=== PATIENT | female | born 1965 | race Two or more races ===

== ENCOUNTER → 2017-02-11 | Outpatient (CLI) | payer MEDICARE, OTHER ==
[~2017-02-11] MED LIST: IBUP800T23 PO; LISI-515 PO; MEDR4PAK PO; VITA10003 PO
[2017-02-11 10:26] LABS: AUTOMATED NEUTROPHIL # 3.1 TH/MM3 (1.8-7.7); BASOPHIL % 0.3 % (0.0-2.0); EOSINOPHIL # 0.1 TH/MM3 (0-0.4); EOSINOPHIL % 1.9 % (0.0-4.0); HEMATOCRIT 37.7 % (35.0-46.0); HEMO FLAGS DIFF FINAL; LYMPH % 28.4 % (9.0-44.0); LYMPHOCYTE # 1.4 TH/MM3 (1.0-4.8); MEAN CELL VOLUME 88.2 FL (80.0-100.0); MEAN CORPUSCULAR HEMOGLOBIN 30.3 PG (27.0-34.0); MEAN CORPUSCULAR HGB CONC 34.4 % (32.0-36.0); MONO % 6.5 % (0.0-8.0); NEUT % 62.9 % (16.0-70.0); PLATELET COUNT 202 TH/MM3 (150-450); RED BLOOD COUNT 4.27 MIL/MM3 (4.00-5.30); RED CELL DISTRIBUTION WIDTH 13.7 % (11.6-17.2)
[2017-02-11 10:52] LABS: ALKALINE PHOSPHATASE 46 U/L (45-117); ALT (GPT) 24 U/L (10-53); ANION GAP 7 MEQ/L (5-15); AST (GOT) 12 U/L (15-37); BICARBONATE 25.6 MEQ/L (21.0-32.0); BLOOD UREA NITROGEN 13 MG/DL (7-18); CHLORIDE 109 MEQ/L (98-107); GLOMERULAR FILTRATION RATE 104 ML/MIN (>89); GLUCOSE,FASTING 93 MG/DL (74-99); HDL CHOLESTEROL 43.8 MG/DL (40.0-60.0); LDL CHOLESTEROL 93 MG/DL (0-99); POTASSIUM 3.7 MEQ/L (3.5-5.1); SODIUM (NA) 142 MEQ/L (136-145); TOTAL BILIRUBIN ADULT 0.3 MG/DL (0.2-1.0)
== END ==
LOC: CLAB 09:46
PROVIDERS: ATTEND Hospitalist
DX: I10 Essential (primary) hypertension (principal)
CPT/HCPCS: 36415; 80053; 80061; 85025; 86803

== ENCOUNTER 2017-09-22 14:44 | Emergency (ER) | payer MEDICARE, OTHER ==
[~2017-09-22 14:44] MED LIST changes: +IBUP1TAB7 PO; -IBUP800T23 PO; -MEDR4PAK PO
[2017-09-22] MEDS ORDERED: IOHEXOL 350 MG/ML 10 ML VIAL (for RAD DIAG) IVCONTRAST ONE (14:45)
[2017-09-22 14:46] VITALS: BP 175/93; PULSE 90; RESP 14; TEMP 98.5; O2SAT 98
[2017-09-22 16:45] LABS: BLOOD, URINE TRACE (NEG); GLUCOSE,URINE NEG (NEG); KETONE, URINE NEG (NEG); MUCUS URINE FEW /lpf (OCC); NITRITE,URINE NEG (NEG); PH, URINE 6.5 (5.0-8.5); SQUAMOUS EPITHELIAL CELL URINE 1 /hpf (0-5); URINE COLOR LIGHT-YELLOW (YELLW/STRAW)
--- NOTE | 2017-09-22 16:45 | PD ---
HPI . Abdominal pain Chief Complaint: Abdominal Pain Time Seen by Provider: 16:04 Travel History International Travel<30 days: No Contact w/Intl Traveler<30days: No Traveled to known affect area: No History of Present Illness HPI Patient presents with the chief complaint of abdominal pain. Onset was a couple days ago. It's worse in the left lower quadrant. The quality of the pain is "soreness." Pain is rated 8/10. She states that it feels like her abdomen is swollen. Pain is exacerbated by movement and by sitting up straight. She does not have any associated symptoms such as GI symptoms or symptoms. She has not been running a fever. PFSH Past Medical History Cancer: No Cardiovascular Problems: No High Cholesterol: No Diabetes: No Diminished Hearing: No Endocrine: No Genitourinary: No Hepatitis: No Hiatal Hernia: No Hypertension: Yes Immune Disorder: No Musculoskeletal: Yes (HIP PROBLEMS -CONGENITAL , CHRONIC BACK PAIN ) Neurologic: No Psychiatric: No Reproductive: Yes Respiratory: No Immunizations Current: Yes Thyroid Disease: No ?: Unknown : 3 Para: 3 Miscarriage: 0 : 0 Tubal Ligation: Yes Past Surgical History AICD: No Gynecologic Surgery: Yes (TUBAL LIGATION ) Hysterectomy: Yes Joint Replacement: No Pacemaker: No Other Surgery: Yes Social History Alcohol Use: No Tobacco Use: No Substance Use: No Allergies-Medications (Allergen,Severity, Reaction): Coded Allergies: No Known Allergies (Verified , 07/31/17) Reported Meds & Prescriptions Reported Meds & Active Scripts Active No Active Prescriptions or Reported Medications Review of Systems Except as stated in HPI: all other systems reviewed are Neg General / Constitutional: No: Fever, Chills Gastrointestinal: Positive: Abdominal Pain, No: Nausea, Vomiting, Diarrhea, Constipation, Loss of Appetite Genitourinary: No: Urgency, Frequency, Dysuria Physical Exam Narrative GENERAL: Patient is awake and alert and does not appear to be in any distress. SKIN: warm/dry. Good color and turgor. HEAD: Normocephalic. Atraumatic. EYES: Pupils equal and round. No scleral icterus. No injection or drainage. ENT: No nasal bleeding or discharge. Mucous membranes pink and moist. NECK: Trachea midline. Full range of motion without pain.. CARDIOVASCULAR: Regular rate and rhythm. RESPIRATORY: No accessory muscle use. Clear to auscultation. Breath sounds equal bilaterally. GASTROINTESTINAL: Abdomen soft. Diffuse mild tenderness with no guarding or rebound. Bowel sounds present. Nondistended. MUSCULOSKELETAL: No obvious deformities. NEUROLOGICAL: Awake and alert. No obvious cranial nerve deficits. Motor grossly within normal limits. Normal speech. PSYCHIATRIC: Appropriate mood and affect; insight and judgment normal. Data Data Last Documented VS Vital Signs Date Time Temp Pulse Resp B/P (MAP) Pulse Ox O2 Delivery O2 Flow Rate FiO2 09/22/17 14:46 98.5 90 14 175/93 (120) 98 Orders Orders Complete Blood Count With Diff (09/22/17 14:50) Comprehensive Metabolic Panel (09/22/17 14:50) Lipase (09/22/17 14:50) Prothrombin Time / Inr (Pt) (09/22/17 14:50) Act Partial Throm Time (Ptt) (09/22/17 14:50) Urinalysis - C+S If Indicated (09/22/17 14:50) Ct Abd/Pel W Iv Contrast(Rout) (09/22/17 16:04) Labs Laboratory Tests Test 09/22/17 16:05 White Blood Count 8.1 TH/MM3 Red Blood Count 4.53 MIL/MM3 Hemoglobin 13.8 GM/DL Hematocrit 40.7 % Mean Corpuscular Volume 89.9 FL Mean Corpuscular Hemoglobin 30.5 PG Mean Corpuscular Hemoglobin Concent 33.9 % Red Cell Distribution Width 13.5 % Platelet Count 235 TH/MM3 Mean Platelet Volume 8.1 FL Neutrophils (%) (Auto) 66.4 % Lymphocytes (%) (Auto) 25.2 % Monocytes (%) (Auto) 7.0 % Eosinophils (%) (Auto) 1.1 % Basophils (%) (Auto) 0.3 % Neutrophils # (Auto) 5.4 TH/MM3 Lymphocytes # (Auto) 2.0 TH/MM3 Monocytes # (Auto) 0.6 TH/MM3 Eosinophils # (Auto) 0.1 TH/MM3 Basophils # (Auto) 0.0 TH/MM3 CBC Comment DIFF FINAL Differential Comment Prothrombin Time 10.5 SEC Prothromb Time International Ratio 1.0 RATIO Activated Partial Thromboplast Time 25.3 SEC Urine Color LIGHT-YELLOW Urine Turbidity CLEAR Urine pH 6.5 Urine Specific [place] 1.020 Urine Protein NEG mg/dL Urine Glucose (UA) NEG mg/dL Urine Ketones NEG mg/dL Urine Occult Blood TRACE Urine Nitrite NEG Urine Bilirubin NEG Urine Urobilinogen LESS THAN 2.0 MG/DL Urine Leukocyte Esterase NEG Urine RBC 2 /hpf Urine WBC 1 /hpf Urine Squamous Epithelial Cells 1 /hpf Urine Mucus FEW /lpf Microscopic Urinalysis Comment CULT NOT INDICATED MDM Medical Decision Making Medical Screen Exam Complete: Yes Emergency Medical Condition: Yes Differential Diagnosis Differential diagnosis of abdominal pain includes but is not limited to gastritis, pancreatitis, hepatitis, gastroenteritis, gallbladder disease, constipation, urinary retention, UTI, peptic ulcer disease, diverticulitis or appendicitis Narrative Course This patient presents complaining with abdominal pain and bloating. She has a benign exam. Her care is being turned over to the oncoming provider pending her workup. Diagnosis Primary Impression: Abdominal pain Qualified Codes: R10.32 - Left lower quadrant pain Scripts No Active Prescriptions or Reported Meds Selam Ramirez MD Sep 22, 2017 16:45
[2017-09-22 16:48] LABS: COMMENT (UR) CULT NOT INDICATED; CULTURE IF INDICATED CULT NOT INDICATED
[2017-09-22 16:49] LABS: AUTOMATED NEUTROPHIL # 5.4 TH/MM3 (1.8-7.7); BASOPHIL % 0.3 % (0.0-2.0); EOSINOPHIL # 0.1 TH/MM3 (0-0.4); EOSINOPHIL % 1.1 % (0.0-4.0); HEMATOCRIT 40.7 % (35.0-46.0); HEMO FLAGS DIFF FINAL; LYMPH % 25.2 % (9.0-44.0); MEAN CELL VOLUME 89.9 FL (80.0-100.0); MEAN CORPUSCULAR HEMOGLOBIN 30.5 PG (27.0-34.0); MEAN CORPUSCULAR HGB CONC 33.9 % (32.0-36.0); NEUT % 66.4 % (16.0-70.0); PLATELET COUNT 235 TH/MM3 (150-450); RED BLOOD COUNT 4.53 MIL/MM3 (4.00-5.30); RED CELL DISTRIBUTION WIDTH 13.5 % (11.6-17.2); WHITE BLOOD COUNT 8.1 TH/MM3 (4.0-11.0)
[2017-09-22 16:58] LABS: APTT (PATIENT) 25.3 SEC (24.3-30.1); PROTHROMBIN TIME - PATIENT 10.5 SEC (9.8-11.6)
[2017-09-22 17:07] LABS: ANION GAP 7 MEQ/L (5-15); AST (GOT) 27 U/L (15-37); BICARBONATE 27.7 MEQ/L (21.0-32.0); BLOOD UREA NITROGEN 17 MG/DL (7-18); CHLORIDE 102 MEQ/L (98-107); GLOMERULAR FILTRATION RATE 107 ML/MIN (>89); POTASSIUM 3.7 MEQ/L (3.5-5.1); SODIUM (NA) 137 MEQ/L (136-145)
[2017-09-22 17:11] LABS: ALKALINE PHOSPHATASE 57 U/L (45-117); ALT (GPT) 50 U/L (10-53); TOTAL BILIRUBIN ADULT 0.2 MG/DL (0.2-1.0)
--- NOTE | 2017-09-22 18:29 | RADRPT ---
EXAM DATE/TIME: 09/22/2017 17:57 [facility] COMPARISON: CT ABDOMEN & PELVIS W CONTRAST, September 07, 2016, 0:27. INDICATIONS : Generalized abdomen pain for two days. IV CONTRAST: 81 cc Omnipaque 350 (iohexol) IV ORAL CONTRAST: No oral contrast ingested. RADIATION DOSE: 6.73 CTDIvol (mGy) MEDICAL HISTORY : Hypertension. SURGICAL HISTORY : Tubal ligation. Hysterectomy. ENCOUNTER: Initial ACUITY: 2 days PAIN SCALE: 8/10 LOCATION: Abdomen TECHNIQUE: Volumetric scanning of the abdomen and pelvis was performed. Using automated exposure control and ad justment of the mA and/or kV according to patient size, radiation dose was kept as low as reasonably achievable to obtain optimal diagnostic quality images. DICOM format image data is available electro nically for review and comparison. FINDINGS: LOWER LUNGS: The visualized lower lungs are clear. LIVER: Mild diffuse low density without lesion. There is no dilation of the biliary tree. No calcified gal lstones. SPLEEN: Normal size without lesion. PANCREAS: Within normal limits. KIDNEYS: Normal in size and shape. There is no mass, stone or hydronephrosis. ADRENAL GLANDS: Within normal limits. VASCULAR: There is no aortic aneurysm. There is mild atherosclerotic disease. BOWEL/MESENTERY: The stomach, small bowel, and colon demonstrate no acute abnormality. There is no free intraperitone al air or fluid. Appendix is normal. ABDOMINAL WALL: Within normal limits. RETROPERITONEUM: There is no lymphadenopathy. BLADDER: No wall thickening or mass. REPRODUCTIVE: No acute abnormality. INGUINAL: There is no lymphadenopathy or hernia. 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 CONCLUSION: 1. No abnormality is identified to explain the clinical symptoms. Overall, no acute finding is seen. 2. 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 Dajuan Aguilera MD on September 22, 2017 at 18:24 Board Certified Radiologist. This report was verified electronically.
--- NOTE | 2017-09-22 18:40 | PD ---
Data Data Last Documented VS Vital Signs Date Time Temp Pulse Resp B/P (MAP) Pulse Ox O2 Delivery O2 Flow Rate FiO2 09/22/17 14:46 98.5 90 14 175/93 (120) 98 Orders Orders Complete Blood Count With Diff (09/22/17 14:50) Comprehensive Metabolic Panel (09/22/17 14:50) Lipase (09/22/17 14:50) Prothrombin Time / Inr (Pt) (09/22/17 14:50) Act Partial Throm Time (Ptt) (09/22/17 14:50) Urinalysis - C+S If Indicated (09/22/17 14:50) Ct Abd/Pel W Iv Contrast(Rout) (09/22/17 16:04) Iohexol 350 Inj (Omnipaque 350 Inj) (09/22/17 14:45) Ketorolac Inj (Toradol Inj) (09/22/17 18:45) Labs Laboratory Tests Test 09/22/17 16:05 White Blood Count 8.1 TH/MM3 Red Blood Count 4.53 MIL/MM3 Hemoglobin 13.8 GM/DL Hematocrit 40.7 % Mean Corpuscular Volume 89.9 FL Mean Corpuscular Hemoglobin 30.5 PG Mean Corpuscular Hemoglobin Concent 33.9 % Red Cell Distribution Width 13.5 % Platelet Count 235 TH/MM3 Mean Platelet Volume 8.1 FL Neutrophils (%) (Auto) 66.4 % Lymphocytes (%) (Auto) 25.2 % Monocytes (%) (Auto) 7.0 % Eosinophils (%) (Auto) 1.1 % Basophils (%) (Auto) 0.3 % Neutrophils # (Auto) 5.4 TH/MM3 Lymphocytes # (Auto) 2.0 TH/MM3 Monocytes # (Auto) 0.6 TH/MM3 Eosinophils # (Auto) 0.1 TH/MM3 Basophils # (Auto) 0.0 TH/MM3 CBC Comment DIFF FINAL Differential Comment Prothrombin Time 10.5 SEC Prothromb Time International Ratio 1.0 RATIO Activated Partial Thromboplast Time 25.3 SEC Urine Color LIGHT-YELLOW Urine Turbidity CLEAR Urine pH 6.5 Urine Specific [place] 1.020 Urine Protein NEG mg/dL Urine Glucose (UA) NEG mg/dL Urine Ketones NEG mg/dL Urine Occult Blood TRACE Urine Nitrite NEG Urine Bilirubin NEG Urine Urobilinogen LESS THAN 2.0 MG/DL Urine Leukocyte Esterase NEG Urine RBC 2 /hpf Urine WBC 1 /hpf Urine Squamous Epithelial Cells 1 /hpf Urine Mucus FEW /lpf Microscopic Urinalysis Comment CULT NOT INDICATED Blood Urea Nitrogen 17 MG/DL Creatinine 0.59 MG/DL Random Glucose 83 MG/DL Total Protein 8.2 GM/DL Albumin 4.0 GM/DL Calcium Level 9.5 MG/DL Alkaline Phosphatase 57 U/L Aspartate Amino Transf (AST/SGOT) 27 U/L Alanine Aminotransferase (ALT/SGPT) 50 U/L Total Bilirubin 0.2 MG/DL Sodium Level 137 MEQ/L Potassium Level 3.7 MEQ/L Chloride Level 102 MEQ/L Carbon Dioxide Level 27.7 MEQ/L Anion Gap 7 MEQ/L Estimat Glomerular Filtration Rate 107 ML/MIN Lipase 121 U/L [facility] Supervised Visit with VERONICA: No Narrative Course The patient was initially evaluated by the previous provider and sent out to me at the beginning of my shift pending labs, CT abdomen pelvis, and disposition. See her note for further details. Briefly this is a 52-year-old female who is here for evaluation of left lower quadrant abdominal pain. Symptoms started couple of days ago. Pain described as a soreness and is 8 out of 10. She feels some abdominal bloating. On my exam the patient is resting comfortably. There is mild left lower quadrant tenderness without peritoneal signs. Vital signs show heart rate 90, blood pressure 175/93, pulse ox 90% on room air, oral temp of 98.5F. CBC is unremarkable. CMP is unremarkable. Lipase is 121. UA shows trace occult blood , few mucus, not suggestive of UTI. CT abdomen pelvis: CONCLUSION: 1. No abnormality is identified to explain the clinical symptoms. Overall, no acute finding is seen. 2. 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 Patient was made aware of all findings. Again she is resting comfortably. There are no peritoneal signs on exam. There is mild left lower quadrant tenderness. At this point she is stable for discharge home with outpatient follow-up with her primary care physician this week. She states she has a colonoscopy scheduled for October. I also advised that she follow-up regarding her microscopic hematuria to make sure that it resolves, and if it doesn't he needs to be further evaluated. She was informed on when to return to the emergency department. She verbalizes understanding and agreement with plan. Diagnosis Primary Impression: Abdominal pain Qualified Codes: R10.32 - Left lower quadrant pain Additional Impression: Microscopic hematuria Referrals: Primary Care Physician 3 days Additional Instruction: Follow-up with your primary care physician this week. Return to the emergency department for worsening symptoms or any other concerns. Scripts No Active Prescriptions or Reported Meds Disposition: 01 DISCHARGE HOME Condition: Stable Deny Caraballo MD Sep 22, 2017 18:40
[2017-09-22] MEDS ORDERED: KETOROLAC TROMETHAMINE 30 MG/ML (IVP) VIAL IV PUSH ONE (18:45)
[2017-09-29] MEDS ORDERED: FLU60SYR19 IM (09:45)
== END 2017-09-22 19:06 | disposition home or self-care (01) ==
LOC: NEPD 14:44
DX: R10.32 Left lower quadrant pain (principal); R31.29 Other microscopic hematuria
CPT/HCPCS: 74177; 80053; 81001; 83690; 85025; 85610; 85730; 96374; 99285; J1885; Q9967

== ENCOUNTER 2018-08-15 09:11 | Inpatient (IN) ==
[2018-08-15] MEDS ORDERED: Gadobutrol PF 7.5 MMOL/7.5 ML Vial (for RAD) IV.SIG ONE (09:12)
--- NOTE | 2018-08-15 09:41 | ED ---
HPI General Chief Complaint: Neuro Symptoms/Deficit Stated Complaint: Numbness facial Time Seen by Provider: 08/15/18 09:26 Source: patient Mode of arrival: ambulatory Limitations: no limitations History of Present Illness HPI Narrative: Patient comes in complaining of waking up with right facial droop , right upper extremity clumsiness right lower extremity weakness however still strong enough to ambulate on her own. Patient stated that she started having tingling and numbness to those same areas last night at 8 PM, she went ahead and just ate her dinner and went took a shower and went to sleep hoping it would feel better. Patient denies having any chest pain any shortness of breath previously Related Data Previous Rx's Medication Instructions Recorded ibuprofen 800 mg PO Q8H PRN #14 tab 08/05/18 methocarbamol [Robaxin] 500 mg PO Q8H #14 tab 08/05/18 Allergies Allergy/AdvReac Type Severity Reaction Status Date / Time No Known Allergies Allergy Verified 08/15/18 09:19 [facility] Social History Social History Substance History: No History of Abuse Second Hand Smoke Exposure: No Smoking Status: Never smoker Tobacco Type: Cigarettes How Often Do You Have a Drink Containing Alcohol: Never Recent Travel in [facility] within the Last 8 Weeks: No Recent Out of Country Travel within the Last 8 Weeks: No Immunization History Tetanus Immunization: Unsure Hx Influenza Vaccine This Season: No Course Initial Documented Vital Signs Temperature 98.3 F 08/15/18 09:13 Pulse Rate 90 08/15/18 09:13 Respiratory Rate 18 08/15/18 09:13 Blood Pressure 174/91 H 08/15/18 09:13 Last Documented Vital Signs Temperature 98.3 F 08/15/18 09:13 Pulse Rate 73 08/15/18 11:24 Respiratory Rate 18 08/15/18 11:24 Blood Pressure 163/84 H 08/15/18 11:24 Pulse Oximetry 99 08/15/18 11:24 Critical Care Time Critical Care Time: Yes Total Critical Care Time: 30 Attestation: Aggregate critical care time was 30 minutes. Time to perform other separately billable procedures was not included in the critical care time. My time did not include minutes spent treating any other patients simultaneously or on activities that did not directly contribute to the patient's treatment. The services I provided to this patient were to treat and/or prevent clinically significant deterioration. I provided critical care services requiring my management, as noted below: Chart data review, documentation time, medication orders and management, vital sign assessments/reviewing monitor data, ordering and reviewing lab tests, ordering and interpreting/reviewing x-rays and diagnostic studies, care of the patient and discussion of the patient with the admitting physicians. NIH Stroke Scale NIHSS Time Completed NIHSS Time Completed: 09:40 NIH Stroke Scale Level of Consciousness: 0-Alert Orientation Questions: 0-Answers both correct Responds to Commands: 0-Both tasks correct Gaze Eye Movement: 0-Horizontal movement WNL Facial Movement: 3-Complete unilateral palsy Motor Functions Arm LEFT: 0-No drift Motor Functions Arm RIGHT: 1-Drift before 10 seconds Motor Functions Leg LEFT: 0-No drift Motor Functions Leg RIGHT: 1-Drift before 5 seconds Limb Ataxia: 0-No ataxia Sensory Loss: 0-No sensory loss Best Language: 1-Mild aphasia Articulation: 1-Mild dysarthia Extinction or Inattention Sensory: 0-Absent Total: 7 Medical Decision Making MDM Narrative Medical decision making narrative: patient was taken care of and had dr saenz neurologist at bedside providing care. please see his note for interventions. call to [facility] for admission nearly 2 hrs ago, still no call back. Medical Screen Exam Complete: Yes Emergency Medical Condition: Yes Medical Records Medical records reviewed: Yes I reviewed the patient's medical records. Lab Data Result diagrams: 08/15/18 09:38 08/15/18 09:38 Lab Results 08/15/18 08/15/1818 Range/Units 09:38 09:38 09:38 WBC 5.9 (4.0-11.0) th/mm3 RBC 4.44 (4.00-5.30) mil/mm3 Hgb 13.8 (11.6-15.3) gm/dL POC Hgb (Calc) 13.6 (11.6-15.3) g/dL Hct 40.1 (35.0-46.0) % POC Hct 40.0 (35-46.0) % MCV 90.4 (80.0-100.0) fL MCH 31.1 (27.0-34.0) pg MCHC 34.4 (32.0-36.0) % RDW 13.3 (11.6-17.2) % Plt Count 226 (150-450) th/mm3 MPV 8.2 (7.0-11.0) fL Neut % (Auto) 58.2 (16.0-70.0) % Lymph % (Auto) 31.8 (9.0-44.0) % [place] % (Auto) 6.9 (0.0-8.0) % Eos % (Auto) 2.6 (0.0-4.0) % Baso % (Auto) 0.5 (0.0-2.0) % Neut # (Auto) 3.4 (1.8-7.7) th/mm3 Lymph # (Auto) 1.9 (1.0-4.8) th/mm3 [place] # (Auto) 0.4 (0.0-0.9) th/mm3 Eos # (Auto) 0.2 (0.0-0.4) th/mm3 Baso # (Auto) 0.0 (0.0-0.2) th/mm3 WBC Differential . Differential Comment Auto diff final ESR (0-30) mm/hr PT 10.0 (9.8-11.6) sec INR 1.0 Ratio APTT 25.3 (24.3-30.1) sec POC Sodium 139 (137-144) mmol/L Sodium 141 (136-145) meq/L POC Potassium 3.9 (3.6-5.0) mmol/L Potassium 3.9 (3.5-5.1) meq/L POC Chloride 104 (102-111) mmol/L Chloride 108 H (98-107) meq/L Carbon Dioxide 24.6 (21.0-32.0) meq/L Anion Gap 8 (5-15) meq/L POC BUN 14 (5-21) mg/dL BUN 15 (7-18) mg/dL Creatinine 0.58 (0.50-1.00) mg/dL POC Creatinine 0.5 L (0.6-1.3) mg/dL Estimated GFR Greater than 89 (>89) mL/min POC Glucose 97 (68-110) mg/dL Random Glucose 94 (74-106) mg/dL Calcium 8.5 (8.5-10.1) mg/dL Total Bilirubin 0.3 (0.2-1.0) mg/dL AST 24 (15-37) U/L ALT 44 (10-53) U/L Alkaline Phosphatase 50 (45-117) U/L Total Creatine Kinase 116 (26-192) U/L CK-MB (CK-2) Less than 1.0 (0.5-3.6) ng/mL Troponin I Less than 0.02 L (0.02-0.05) ng/mL Total Protein 7.7 (6.4-8.2) g/dL Albumin 3.7 (3.4-5.0) g/dL Urine Color (Yellw/Straw) Urine Clarity (Clear) Urine pH (5.0-8.5) Ur Specific [place] (1.002-1.035) Urine Protein (Neg-Trace) mg/dL Urine Glucose (UA) (Negative) mg/dL Urine Ketones (Negative) mg/dL Urine Occult Blood (Negative) Urine Nitrate (Negative) Urine Bilirubin (Negative) Urine Urobilinogen (Less than 2) mg/dL Ur Leukocyte Esterase (Negative) Urine RBC (0-3) /hpf Urine WBC (0-5) /hpf Ur Squamous Epith Cells (0-5) /hpf Micro UA Comment Ur Microscopic Review Urine Culture Comments Urine Opiates Screen (Neg) Ur Barbiturates Screen (Neg) Ur Amphetamines Screen (Neg) U Benzodiazepines Scrn (Neg) Urine Cocaine Screen (Neg) U Cannabinoids Screen (Neg) 08/15/18 08/15/18 08/15/18 Range/Units 09:38 10:35 10:35 WBC (4.0-11.0) th/mm3 RBC (4.00-5.30) mil/mm3 Hgb (11.6-15.3) gm/dL POC Hgb (Calc) (11.6-15.3) g/dL Hct (35.0-46.0) % POC Hct (35-46.0) % MCV (80.0-100.0) fL MCH (27.0-34.0) pg MCHC (32.0-36.0) % RDW (11.6-17.2) % Plt Count (150-450) th/mm3 MPV (7.0-11.0) fL Neut % (Auto) (16.0-70.0) % Lymph % (Auto) (9.0-44.0) % [place] % (Auto) (0.0-8.0) % Eos % (Auto) (0.0-4.0) % Baso % (Auto) (0.0-2.0) % Neut # (Auto) (1.8-7.7) th/mm3 Lymph # (Auto) (1.0-4.8) th/mm3 [place] # (Auto) (0.0-0.9) th/mm3 Eos # (Auto) (0.0-0.4) th/mm3 Baso # (Auto) (0.0-0.2) th/mm3 WBC Differential Differential Comment ESR 17 (0-30) mm/hr PT (9.8-11.6) sec INR Ratio APTT (24.3-30.1) sec POC Sodium (137-144) mmol/L Sodium (136-145) meq/L POC Potassium (3.6-5.0) mmol/L Potassium (3.5-5.1) meq/L POC Chloride (102-111) mmol/L Chloride (98-107) meq/L Carbon Dioxide (21.0-32.0) meq/L Anion Gap (5-15) meq/L POC BUN (5-21) mg/dL BUN (7-18) mg/dL Creatinine (0.50-1.00) mg/dL POC Creatinine (0.6-1.3) mg/dL Estimated GFR (>89) mL/min POC Glucose (68-110) mg/dL Random Glucose (74-106) mg/dL Calcium (8.5-10.1) mg/dL Total Bilirubin (0.2-1.0) mg/dL AST (15-37) U/L ALT (10-53) U/L Alkaline Phosphatase (45-117) U/L Total Creatine Kinase (26-192) U/L CK-MB (CK-2) (0.5-3.6) ng/mL Troponin I (0.02-0.05) ng/mL Total Protein (6.4-8.2) g/dL Albumin (3.4-5.0) g/dL Urine Color Straw (Yellw/Straw) Urine Clarity Clear (Clear) Urine pH 7.0 (5.0-8.5) Ur Specific [place] 1.031 (1.002-1.035) Urine Protein Negative (Neg-Trace) mg/dL Urine Glucose (UA) Negative (Negative) mg/dL Urine Ketones Negative (Negative) mg/dL Urine Occult Blood Negative (Negative) Urine Nitrate Negative (Negative) Urine Bilirubin Negative (Negative) Urine Urobilinogen Less than 2 (Less than 2) mg/dL Ur Leukocyte Esterase Negative (Negative) Urine RBC Less than 1 (0-3) /hpf Urine WBC 2 (0-5) /hpf Ur Squamous Epith Cells 3 (0-5) /hpf Micro UA Comment Culture not ind Ur Microscopic Review Not Reportable Urine Culture Comments Culture not ind Urine Opiates Screen Neg (Neg) Ur Barbiturates Screen Neg (Neg) Ur Amphetamines Screen Neg (Neg) U Benzodiazepines Scrn Neg (Neg) Urine Cocaine Screen Neg (Neg) U Cannabinoids Screen Neg (Neg) Imaging Data Radiologist's impression: Chest X-Ray 08/15/18 09:34 CONCLUSION: No acute cardiopulmonary abnormality is identified. Head CT 08/15/18 09:34 CONCLUSION: Negative noncontrast head CT. No acute intracranial abnormality is identified. Report was telephoned to Dr. Morocho on 08/15/2018 at 9:57 AM. Head CTA 08/15/18 09:34 CONCLUSION: No acute intracranial arterial vascular abnormality is identified. These findings were telephoned to Dr. Morocho on 08/15/2018 at 10:42 AM. Neck CTA 08/15/18 09:34 CONCLUSION: No acute abnormality is identified within the neck arterial vasculature. These findings were telephoned to Dr. Morocho on 08/15/2018 at 10:42 AM. Head MRI 08/15/18 10:09 CONCLUSION: Negative brain MRI with and without intravenous contrast. There are no findings to indicate recent ischemia. ECG Data EKG Prior to Arrival: No Attestation: I personally reviewed and interpreted this ECG as follows: Prior ECG tracings: not available for review Discharge Plan Discharge Disposition Patient Disposition: 30 Still Patient Discharge Condition Condition: Stable Discharge Details Diagnosis: CVA (cerebral vascular accident) Physicians Team ED Provider: Armando Quijano Primary Care Provider: UNKNOWN, Rxs /Orders / Referrals /Forms Prescriptions: No Action methocarbamol [Robaxin] 500 mg tablet 500 mg PO Q8H Qty: 14 RF: 0 ibuprofen 800 mg tablet 800 mg PO Q8H PRN (Reason: pain) Qty: 14 RF: 0 Status ED Status: With Doctor
[2018-08-15] MEDS ORDERED: Sod Chloride 0.9% Inj 1,000 ML IV.CONT SCH (09:45)
[2018-08-15 09:59] LABS: Baso % (Auto) 0.5 % (0.0-2.0); Eos # (Auto) 0.2 th/mm3 (0.0-0.4); Eos % (Auto) 2.6 % (0.0-4.0); Hematocrit 40.1 % (35.0-46.0); Hemoglobin 13.8 gm/dL (11.6-15.3); Lymph # (Auto) 1.9 th/mm3 (1.0-4.8); Lymph % (Auto) 31.8 % (9.0-44.0); Mean Corpuscular HGB Conc 34.4 % (32.0-36.0); Mean Corpuscular Hemoglobin 31.1 pg (27.0-34.0); Mean Corpuscular Volume 90.4 fL (80.0-100.0); Mean Platelet Volume 8.2 fL (7.0-11.0); Mono # (Auto) 0.4 th/mm3 (0.0-0.9); Mono % (Auto) 6.9 % (0.0-8.0); Neut # (Auto) 3.4 th/mm3 (1.8-7.7); Neut % (Auto) 58.2 % (16.0-70.0); Platelet Count 226 th/mm3 (150-450); Red Blood Count 4.44 mil/mm3 (4.00-5.30); Red Cell Distribution Width 13.3 % (11.6-17.2); White Blood Count 5.9 th/mm3 (4.0-11.0)
--- NOTE | 2018-08-15 09:59 | CT ---
EXAM DATE: 08/15/2018 9:38 AM EDT AGE/SEX: 52 years / Female INDICATIONS: Stroke alert, right sided facial droop and dysphasia. CLINICAL DATA: This is the patient's initial encounter. Patient reports that signs and symptoms have been present for 1 day and indicates a pain score of Nonresponsive. MEDICAL/SURGICAL HISTORY: Non-responsive. Non-responsive. RADIATION DOSE: 56.35 CTDI (mGy) COMPARISON: No prior exams available for comparison. TECHNIQUE: CT of the head without contrast. Using automated exposure control and adjustment of the mA and/or kV according to patient size, radiation dose was kept as low as reasonably achievable to ob tain optimal diagnostic quality images. DICOM format image data is available electronically for revi ew and comparison. FINDINGS: Cerebrum: The ventricles are normal. No midline shift, mass lesion, hemorrhage or acute infarction. No extraaxial fluid collections are seen. Posterior Fossa: The cerebellum and brainstem demonstrate no acute abnormality. The 4th ventricle is midline. The cerebellopontine angle is within normal limits. Extracranial: The visualized sinuses are clear. Skull: The calvaria is intact. No skull fracture. CONCLUSION: Negative noncontrast head CT. No acute intracranial abnormality is identified. Report was telephoned to Dr. Morocho on 08/15/2018 at 9:57 AM. Electronically signed by: Dajuan Aguilera MD 08/15/2018 9:58 AM EDT
[2018-08-15 10:08] LABS: Activated Partial Thrombo Time 25.3 sec (24.3-30.1)
[2018-08-15 10:22] LABS: Alanine Aminotransferase 44 U/L (10-53); Albumin 3.7 g/dL (3.4-5.0); Anion Gap 8 meq/L (5-15); Aspartate Aminotransferase 24 U/L (15-37); Blood Urea Nitrogen 15 mg/dL (7-18); Calcium 8.5 mg/dL (8.5-10.1); Carbon Dioxide 24.6 meq/L (21.0-32.0); Chloride 108 meq/L (98-107); Glomerular Filtration Rate Greater Than 89 mL/min (>89); Glucose,Random 94 mg/dL (74-106); Potassium 3.9 meq/L (3.5-5.1); Sodium 141 meq/L (136-145)
[2018-08-15 10:26] LABS: Alkaline Phosphatase 50 U/L (45-117); Creatine Kinase 116 U/L (26-192); Total Protein 7.7 g/dL (6.4-8.2)
--- NOTE | 2018-08-15 10:35 | XR ---
EXAM DATE: 08/15/2018 9:34 AM EDT AGE/SEX: 52 years / Female INDICATIONS: Pneumonia. CLINICAL DATA: This is the patient's initial encounter. Patient reports that signs and symptoms have been present for 1 day and indicates a pain score of 0/10. MEDICAL/SURGICAL HISTORY: None. None. COMPARISON: [facility] [place]ST [place] & [place], 07/30/2013. . FINDINGS: Portable AP view of the chest demonstrates a normal-sized cardiac silhouette. No effusion, consolidat ion, or pneumothorax is identified. The bones and soft tissues demonstrate no acute finding. EKG line s overlie the patient. CONCLUSION: No acute cardiopulmonary abnormality is identified. Electronically signed by: Dajuan Aguilera MD 08/15/2018 10:33 AM EDT
--- NOTE | 2018-08-15 10:44 | CT ---
EXAM DATE: 08/15/2018 9:38 AM EDT AGE/SEX: 52 years / Female INDICATIONS: Stroke alert, right sided facial droop and dysphasia. CLINICAL DATA: This is the patient's initial encounter. Patient reports that signs and symptoms have been present for 1 day and indicates a pain score of Nonresponsive. MEDICAL/SURGICAL HISTORY: Non-responsive. Non-responsive. RADIATION DOSE: 9.96 CTDI (mGy) ; Combined studies [place] [facility] [place] W 3D, 08/15/2018. . TECHNIQUE: Volumetric scanning was performed using a multi-row detector CT scanner during bolus infu esther of 60 ml Visipaque 320 (iodixanol) nonionic water-soluble contrast as a cumulative dose for mul tiple exams. The data was post processed with a variety of visualization algorithms including full volume maximum intensity projection, multi-planar sliding thin slab reformation, curved planar reform ation, and surface rendering techniques. Using automated exposure control and adjustment of the mA a nd/or kV according to patient size, radiation dose was kept as low as reasonably achievable to obtain optimal diagnostic quality images. DICOM format image data is available electronically for review a nd comparison. FINDINGS: There is excellent visualization of the major intracranial arteries out to the second-order branch ve ssels. There is no aneurysm, vessel truncation or stenosis, and no evidence for vascular malformatio n. CONCLUSION: No acute intracranial arterial vascular abnormality is identified. These findings were telephoned to Dr. Morocho on 08/15/2018 at 10:42 AM. Electronically signed by: Dajuan Aguilera MD 08/15/2018 10:43 AM EDT
--- NOTE | 2018-08-15 10:47 | CT ---
EXAM DATE: 08/15/2018 9:38 AM EDT AGE/SEX: 52 years / Female INDICATIONS: STROKE ALERT. Right side facial numbness and droop. CLINICAL DATA: This is the patient's initial encounter. Patient reports that signs and symptoms have been present for 1 day and indicates a pain score of 0/10. MEDICAL/SURGICAL HISTORY: None. None. RADIATION DOSE: 10.14 CTDI (mGy) ; Combined studies COMPARISON: No prior exams available for comparison. TECHNIQUE: Volumetric scanning was performed using a multirow detector CT scanner during bolus infus ion of 60 ml Visipaque 320 (iodixanol) nonionic water-soluble contrast as a cumulative dose for mult iple exams. The data was postprocessed with a variety of visualization algorithms including full-vo lume maximum intensity projection, multiplanar sliding thin-slab reformation, curved-planar reformati on, and surface-rendering techniques. Using automated exposure control and adjustment of the mA and/ or kV according to patient size, radiation dose was kept as low as reasonably achievable to obtain op timal diagnostic quality images. DICOM format image data is available electronically for review and comparison. Percent stenosis is calculated using the diameter of the stenotic region over the diameter of the nor mal distal internal carotid artery. FINDINGS: Aortic Arch: There is a three-vessel origin of the great vessels from the aorta. No evidence of ost ial narrowing Right Carotid: The common carotid artery is within normal limits. The carotid bulb has a normal con figuration without ulceration or narrowing. The internal carotid artery lumen is smooth without sten osis. The external carotid artery is within normal limits. Left Carotid: The common carotid artery is within normal limits. The carotid bulb has a normal conf iguration without ulceration or narrowing. The internal carotid artery lumen is smooth without steno sis. The external carotid artery is within normal limits. Vertebrals: The vertebral arteries demonstrate no significant abnormality. Visualized surrounding structures demonstrate no acute abnormality. CONCLUSION: No acute abnormality is identified within the neck arterial vasculature. These findings were telephoned to Dr. Morocho on 08/15/2018 at 10:42 AM. Electronically signed by: Dajuan Aguilera MD 08/15/2018 10:46 AM EDT
[2018-08-15 11:04] LABS: Bilirubin,Urine Negative (Negative); Clarity,Urine Clear (Clear); Color,Urine Straw (Yellw/Straw); Glucose,Urine (UA) Negative (Negative); Leukocyte Esterase,Urine Negative (Negative); Nitrite,Urine Negative (Negative); Specific Gravity,Urine 1.031 (1.002-1.035); Squamous Epithelial Cell,Urine 3 /hpf (0-5)
[2018-08-15 11:14] LABS: Amphetamine Screen,Urine Neg (Neg); Barbiturate Screen,Urine Neg (Neg); Cannabinoid Screen,Urine Neg (Neg); Cocaine Screen,Urine Neg (Neg)
[2018-08-15 11:21] LABS: Opiate Screen,Urine Neg (Neg)
[2018-08-15] MEDS: Aspirin 325 MG Tablet PO SCH (11:21)
--- NOTE | 2018-08-15 11:33 | MR ---
EXAM DATE: 08/15/2018 10:44 AM EDT AGE/SEX: 52 years / Female INDICATIONS: CVA. CLINICAL DATA: This is the patient's initial encounter. Patient reports that signs and symptoms have been present for 1 day and indicates a pain score of 0/10. MEDICAL/SURGICAL HISTORY: None. Hysterectomy. COMPARISON: No prior exams available for comparison. TECHNIQUE: Multiplanar, multisequence examination of the brain was performed without and with 60 ml G adavist (gadobutrol) contrast as a single exam dose. FINDINGS: Cerebrum: Ventricles are normal. No midline shift, mass lesion, hemorrhage or acute infarction. No extraaxial fluid collections are seen. The pituitary gland and suprasellar cistern are normal in con figuration. White Matter: No significant signal abnormalities are seen in the white matter. Posterior Fossa: The cerebellum and brainstem demonstrate no acute abnormality. The 4th ventricle is midline. The cerebellopontine angle is within normal limits. The cerebellar tonsils are normal in p osition. Diffusion Imaging: No areas of restricted diffusion are seen. Extracranial: The visualized sinuses are clear. Post contrast: No abnormal contrast enhancement is identified. CONCLUSION: Negative brain MRI with and without intravenous contrast. There are no findings to indicate recent is chemia. Electronically signed by: Dajuan Aguilera MD 08/15/2018 11:32 AM EDT
--- NOTE | 2018-08-15 11:54 | MB ---
cc: Cristhian Morocho MD DATE: 08/15/2018 HISTORY OF PRESENT ILLNESS: A 52-year-old woman without any significant past medical history. She had some recent hip pain and was given a muscle relaxer, does not usually take aspirin or any blood thinners and then, last night she felt some tingling around the upper lip bilaterally and a little bit of tearing in the right eye overnight and little tingling in the right ear. This morning when she woke up, she noticed that she was weak on the right side and her face was droopy on the right side, was drooling on the right side of her mouth. REVIEW OF SYSTEMS: She denies any headache, chest pain, palpitations, hypertension, diabetes, hypercholesterolemia, MS, CABG, stent, angioplasty, A-Fib, Coumadin, heart problems, renal, hepatic or pulmonary disease, thyroid disease, lupus, ulcer, cancer, seizure or stroke. There are no blood clots in herself or miscarriages nor in the family. SOCIAL HISTORY: Nonsmoker or drinker, lives with her . FAMILY HISTORY: Negative for cancer or stroke. PHYSICAL EXAMINATION: On exam, 170/80 regular rhythm. She is currently on CT scan. There were no carotid bruits. Heart was regular rate and rhythm. I did not detect a murmur. She is mildly obese. Pupils are equal. Visual do are full, although a little hesitation on the right side compared to the left. Tongue was midline. Extraocular movements intact without nystagmus. She does have a right facial droop, mild to moderate. Speech is fluent. She is not aphasic. She can name, gives a good history. There is a slight right drift. She had normal strength in the left upper and lower extremities. The right upper extremity is about a 4+ and the right lower extremity 4+. Toes are downgoing bilaterally. DTRs trace throughout. She has got a right hemisensory loss, mild on the right face, arm, and leg compared to the left pinprick, not ataxic on [id number]. LABORATORY DATA: She had a CT scan of her brain, preliminary read negative. Review of the films does appear to be normal, question of a little bit of hypodensity just lateral to the caudate on the right lateral posterior, maybe around the internal capsule, hard to say. CTA is pending. MEDICATIONS: Robaxin and ibuprofen at home. LABORATORY DATA: CBC is normal. On 08/05/2018, her UA showed 76 white cells, moderate leukocyte esterase. BMP today is normal. Other labs are pending still. IMPRESSION: Looks to be a stroke. She is outside the TPA window, as such she is not going to get IV TPA. We will do a CTA of the head and neck and a CT perfusion of the brain and echocardiogram and further workup. Give her an aspirin now. Her NIH stroke scale is a 7 at this time. MD JANIS Gonzalez/cate , 10:05 AM , 10:14 AM
--- NOTE | 2018-08-15 12:05 | CT ---
EXAM DATE: 08/15/2018 10:05 AM EDT AGE/SEX: 52 years / Female INDICATIONS: STROKE ALERT. CLINICAL DATA: This is the patient's initial encounter. Patient reports that signs and symptoms have been present for 1 day and indicates a pain score of 0/10. MEDICAL/SURGICAL HISTORY: None. None. RADIATION DOSE: 217.64 CTDI (mGy) COMPARISON: No prior exams available for comparison. TECHNIQUE: CT of the head after intravenous administration of 40 ml Visipaque 320 (iodixanol) nonio shanique water-soluble contrast as a single exam dose. Using automated exposure control and adjustment of the mA and/or kV according to patient size, radiation dose was kept as low as reasonably achievable to obtain optimal diagnostic quality images. DICOM format image data is available electronically for review and comparison. FINDINGS: Examination is essentially normal. 1. CBF (<30%) Volume (ml): 0 2. Perfusion (Tmax>6.0s) Volume (ml): 0 3. Mismatch Volume (ml) (Tmax>6.0 - CBF): 0 CONCLUSION: Physiological brain perfusion parameters with RAPID analysis as above. The decision for consideration of therapy is multi factorial and multi disciplinary relying on subjec tive and objective clinical data. This data is not construed or intended to be the sole determinant of treatment eligibility. Electronically signed by: Kevin Escudero MD 08/15/2018 12:04 PM EDT
--- NOTE | 2018-08-15 12:25 | P.HPFP ---
Addendum entered and electronically signed by Nely Maddox MD, R2 08/15/18 16 :50: Folate and B12 level assessment ordered as well. Original Note: History of Present Illness Primary Care Physician: UNKNOWN <BarbraSelin R - 08/17/18 12:33> UNKNOWN <Nely Maddox N - 08/15/18 12:25> History of Present Illness: 52 y/o F presenting with new onset right sided weakness and numbness. PCP is Dr. Varela at [facility], does not see any other physicians for care. Yesterday, she states she went out for dinner and felt her lip "go numb" during dinner. Returned home and retired to bed without any further changes. While sleeping, felt her eye twitching and tears leaking out of right eye. This morning, when went to brush her teeth, she was surprised to find that she couldn 't rinse her mouth properly and that the liquid ran out of her mouth. She then proceeded to drive herself to the hospital. On her way, she noticed that she couldn't close right eye, couldn't feel right shoulder, and felt her muscle "pulsing in her neck." For her past medical history, she states her right leg has been "bad" and has been taking a muscle relaxer methocarbam 500 BID. Pain is due to compensating for her left hip dysplasia she has had since . Had been taking the relaxer for a week and did not take it today. No recent travel (cruise 2 months ago), right eye is blurry, speech is affected, mouth feels material hauler. Not sure if right arm is weak but does not feel she has good control. Can't tell if her lower legs feel weaker but feels cramping in the lower right leg. No numbness or tremors, olfactory changes, seizure-like symptoms, or migraine history (except when she was very young), recent falls, or syncope, or memory problems. Denies recent cold/flu-like symptoms or fevers. Daughter contracted Hoffman's palsy years ago and still has some residual right sided No family history of seizures or neurological disease. Symptoms are getting worse, feels mainly her speech is getting worse. Has a headache, but this started since she got to the hospital. Mom from lupus complications at age 37. Patient herself denies rashes, joint pains, shortness of breath, or photosensitivity. Had partial hysterectomy year and a half ago. <SimranshrutiAugieNely 08/15/18 16:48> - Diagnosis (1) Weakness on right side of face (2) Weakness of right side of body (3) Hip pain, chronic <Selin Belle R 08/17/18 12:33> (1) Weakness on right side of face (2) Weakness of right side of body (3) Hip pain, chronic <SimranshrutiAugieNely 08/15/18 16:06> Inpatient Certification: I certify that the inpatient services were ordered in accordance with Medicare regulations governing the order. This includes certification that hospital inpatient services are reasonable and necessary and in the case of services not specified as inpatient-only under 42 CFR 419.22(n), that they are appropriately provided as inpatient services in accordance to with the 2-midnight benchmark under 43 CFR 412.3(e) <Selin Belle 08/17/18 12:33> I certify that the inpatient services were ordered in accordance with Medicare regulations governing the order. This includes certification that hospital inpatient services are reasonable and necessary and in the case of services not specified as inpatient-only under 42 CFR 419.22(n), that they are appropriately provided as inpatient services in accordance to with the 2-midnight benchmark under 43 CFR 412.3(e) <SimranshrutiAugieNely 08/15/18 12:25> Review of Systems Constitutional: Reports night sweats ( +menopause), Denies fever(s), Denies increased appetite, Denies lack of energy <SimranshrutiNely 08/15/18 12:25> Eyes: Denies blind spots, Denies dry eyes, Denies floaters <SimranshrutiNely 12:25> Ears, Nose, Mouth, and Throat: Denies ear pain, Denies mouth pain, Denies nasal congestion, Denies nose pain <SimranshrutiNely 08/15/18 12:25> Cardiovascular: Denies chest pain, Denies shortness of breath <AbiNely bahena 08/15/18 12:25> Respiratory: Denies cough, Denies shortness of breath <AbiNely bahena 12:25> Gastrointestinal: Denies abdominal pain, Denies incontinent of stools, Denies nausea, Denies vomiting <[facility] 08/15/18 12:25> Genitourinary: Denies blood in urine, Denies difficulty urinating, Denies dribbling after urination, Denies urinary incontinence <[facility] 12:25> Musculoskeletal: Reports muscle cramps, Reports numbness, Reports tingling, Denies joint pain, Denies joint swelling <[facility] 08/15/18 12:25> Skin/Breast: Denies lesions, Denies sensitivity to light, Denies skin pain, Denies skin ulcer <[facility] 08/15/18 12:25> Neurologic: Denies abnormal hearing, Denies confusion, Denies memory loss, Denies seizure-like activity <[facility] 08/15/18 12:25> Psychiatric: Denies anxiety, Denies depression <[facility] 08/15/18 12:25 > Endocrine: Denies cold intolerance, Denies excessive sweating, Denies heat intolerance <[facility] 08/15/18 12:25> Hematologic/Lymphatic: Denies easy bleeding, Denies easy bruising <[facility] 08/15/18 12:25> PMFSH - History History Provided By: Patient <[facility] 08/15/18 12:25> - Medical History Medical History: Medical History (Last Updated 08/15/18 @ 13:52 by Nely Maddox MD, R2) Hip dysplasia, congenital <Selin Belle 08/17/18 12:33> Medical History (Last Updated 08/15/18 @ 13:52 by Nely Maddox MD, R2) Hip dysplasia, congenital <TanNely 08/15/18 14:04> - Surgical History Surgical History: Surgical History (Last Updated 08/15/18 @ 13:52 by Nely Maddox MD, R2) History of partial hysterectomy <Selin Belle 08/17/18 12:33> Surgical History (Last Updated 08/15/18 @ 13:52 by Nely Maddox MD, R2) History of partial hysterectomy <SimranshrutiNely Calix 08/15/18 14:04> - Family History Family History: Family History (Last Updated 08/15/18 @ 13:52 by Nely Maddox MD, R2) Mother Lupus Father Bone cancer Sister Bone cancer <Selin Belle 08/17/18 12:33> Family History (Last Updated 08/15/18 @ 13:52 by Nely Maddox MD, R2) Mother Lupus Father Bone cancer Sister Bone cancer <SimranNely bahena 08/15/18 15:02> - Social History I have reviewed the patient's Social History: Yes <SimranshrutiNely 08/15/18 14 :04> - Tobacco History Second Hand Smoke Exposure: No <SimranNely bahena 08/15/18 12:25> Tobacco Use In Past 30 Days: No <Nely Maddox 08/15/18 12:25> Smoking Status: Never smoker <Nely Maddox 08/15/18 12:25> Tobacco Type: Cigarettes <SimranshrutiNely 08/15/18 12:25> - Alcohol History How Often Do You Have a Drink Containing Alcohol: Never <SimranshrutiNely 08/15 12:25> - Substance Use History Substance History: No History of Abuse <SimranshrutiNely 08/15/18 12:25> - Travel History Recent Travel in the [facility] Within the Last 8 Weeks: No <TanNely 12:25> Recent Travel Out of the Country Within the Last 8 Weeks: No <SimranshrutiNely Yogi 08/15/18 12:25> - Immunization History Tetanus Immunization: Unsure <TanNely 08/15/18 12:25> Hx Influenza Vaccine This Season: No <Nely Maddox 08/15/18 12:25> Medications and Allergies Allergies Allergy/AdvReac Type Severity Reaction Status Date / Time No Known Allergies Allergy Verified 08/15/18 09:19 <Selin Belle 08/17/18 12:33> Home Medications Medication Instructions Recorded Confirmed Type methocarbamol [Robaxin] 500 mg PO BID 08/15/18 History <CeciliaSelin mancia R - 08/17/18 12:33> Active Medications: Active Medications Acetaminophen (Tylenol) 650 mg PO Q6HR PRN PRN Reason: PAIN 1-10 AND/OR FEVER >101F Aspirin (Aspirin) 325 mg PO DAILY [facility] Last Admin: 08/16/18 10:09 Dose: Not Given Dextrose (D50w Vial) 50 ml IV.PUSH UNSCH PRN PRN Reason: PER HYPOGLYCEMIA PROTOCOL Glucagon (Glucagon Inj) 1 mg OTHER UNSCH PRN PRN Reason: for Hypoglycemia Protocol Sodium Chloride (Ns Inj) 1,000 mls @ 110 mls/hr IV.CONT .Q9H6M [facility] Last Admin: 08/16/18 16:09 Dose: 110 mls/hr Pantoprazole Sodium (Protonix Inj) 40 mg IV.PUSH Q24H [facility] Last Admin: 08/15/18 23:49 Dose: 40 mg Sodium Chloride (Ns Flush) 2 ml IV.FLUSH PRN PRN PRN Reason: FLUSH AFTER USING IV ACCESS Sodium Chloride (Ns Flush) 2 ml IV.FLUSH BID [facility] Last Admin: 08/16/18 10:09 Dose: Not Given <Selin Belle R - 08/17/18 12:33> Active Medications Aspirin (Aspirin) 325 mg PO DAILY [facility] Last Admin: 08/15/18 11:21 Dose: 325 mg Sodium Chloride (Ns Inj) 1,000 mls @ 120 mls/hr IV.CONT .Q8H20M [facility] Stop: 08/15/18 18:04 Last Admin: 08/15/18 11:23 Dose: 120 mls/hr Sodium Chloride (Ns Flush) 2 ml IV.FLUSH PRN PRN PRN Reason: FLUSH AFTER USING IV ACCESS <Nely Maddox N - 08/15/18 14:04> Exam Vital signs: Vital Signs 08/16/18 16:00 Temperature 98.0 F Pulse Rate 96 H Respiratory Rate 20 Blood Pressure 167/83 H Pulse Oximetry 97 Intake & Output 08/16/18 08/17/18 08/17/18 18:59 06:59 18:59 Intake Total 1000 / 1000 Balance 1000 / 1000 Intake: IV 1000 / 1000 NS Inj 1,000 ML @ 110 mls/hr IV 1000 / 1000 .CONT .Q9H6M [facility] Rx#:[id number] <Selin Belle R - 08/17/18 12:33> Vital Signs 08/15/18 09:13 08/15/18 09:19 08/15/18 09:38 Temperature 98.3 F Pulse Rate 90 97 H 92 H Respiratory Rate 18 18 18 Blood Pressure 174/91 H 166/101 H 160/89 H Pulse Oximetry 98 99 08/15/18 09:45 08/15/18 10:05 08/15/18 10:57 Temperature Pulse Rate 91 H 81 Respiratory Rate 18 18 Blood Pressure 175/91 H 149/86 H Pulse Oximetry 98 99 96 08/15/18 11:24 Temperature Pulse Rate 73 Respiratory Rate 18 Blood Pressure 163/84 H Pulse Oximetry 99 Intake & Output 08/14/18 08/15/18 08/15/18 18:59 06:59 18:59 Weight 65.317 kg <TanNely N - 08/15/18 12:25> Narrative: GENERAL: Well-nourished, well-developed patient. Moderate to severe facial droop noted on the right, impacting speech and causing slurring. SKIN: Warm and dry. No rash. EYES: No scleral icterus. Clear fluid drainage from the right eye. PERRLA. EOMI. HENT: Normocephalic. Atraumatic. Mucous membranes pink and moist. Uvula midline. Oropharynx clear w/o lesions or erythema. CARDIOVASCULAR: Regular rate and rhythm without obvious murmurs, gallops, or rubs. No carotid bruits. 2+ posterior tibial, and dorsalis pedis pulses. RESPIRATORY: No accessory muscle use. CTAB. GASTROINTESTINAL: Abdomen soft, non-tender, nondistended without rebound or guarding. No organomegaly. MUSCULOSKELETAL: 4/5 motor strength on the right side UE and LE. 5/5 on the left side. No cyanosis, clubbing, or edema. NEURO: Awake, alert, and oriented x3. CN 3,4,6, 8-11 appear intact. Unable to fully close right eye. Decreased sensation to pain/pinprick on the right side, including face. Sensation to light touch decreased on the right. Cerebellar testing wnl. DTRs at the patella and brachioradialis decreased on the right. PSYCH: Able to respond to questions appropriately, cooperative, alert, speech is normal and clear. Affect is appropriate to situation. <Nely Maddox N - 08/15/18 16:48> Results - Labs Result diagrams: 08/16/18 04:36 08/16/18 04:36 <Selin Belle R - 08/17/18 12:33> Abnormal lab results 08/15/18 Range/Units 09:38 Chloride 108 H (98-107) meq/L POC Creatinine 0.5 L (0.6-1.3) mg/dL Troponin I Less than 0.02 L (0.02-0.05) ng/mL Short CBC 08/15/18 Range/Units 09:38 WBC 5.9 (4.0-11.0) th/mm3 Hgb 13.8 (11.6-15.3) gm/dL Hct 40.1 (35.0-46.0) % Plt Count 226 (150-450) th/mm3 BMP 08/15/18 09:38 Sodium 141 Potassium 3.9 Chloride 108 H Carbon Dioxide 24.6 BUN 15 Creatinine 0.58 Calcium 8.5 Cardiac Enzymes 08/15/18 Range/Units 09:38 Total Creatine Kinase 116 (26-192) U/L CK-MB (CK-2) Less than 1.0 (0.5-3.6) ng/mL Troponin I Less than 0.02 L (0.02-0.05) ng/mL Liver Function 08/15/18 Range/Units 09:38 Total Bilirubin 0.3 (0.2-1.0) mg/dL AST 24 (15-37) U/L ALT 44 (10-53) U/L Alkaline Phosphatase 50 (45-117) U/L Albumin 3.7 (3.4-5.0) g/dL Urine 08/15/18 Range/Units 10:35 Urine Color Straw (Yellw/Straw) Urine Clarity Clear (Clear) Urine pH 7.0 (5.0-8.5) Ur Specific [place] 1.031 (1.002-1.035) Urine Protein Negative (Neg-Trace) mg/dL Urine Glucose (UA) Negative (Negative) mg/dL <Nely Maddox N - 08/15/18 12:25> - Imaging Impressions Chest X-Ray 08/15/18 09:34 CONCLUSION: No acute cardiopulmonary abnormality is identified. Head CT 08/15/18 09:34 CONCLUSION: Negative noncontrast head CT. No acute intracranial abnormality is identified. Report was telephoned to Dr. Morocho on 08/15/2018 at 9:57 AM. Head CTA 08/15/18 09:34 CONCLUSION: No acute intracranial arterial vascular abnormality is identified. These findings were telephoned to Dr. Morocho on 08/15/2018 at 10:42 AM. Neck CTA 08/15/18 09:34 CONCLUSION: No acute abnormality is identified within the neck arterial vasculature. These findings were telephoned to Dr. Morocho on 08/15/2018 at 10:[address] 08/15/18 10:03 CONCLUSION: Physiological brain perfusion parameters with RAPID analysis as above. The decision for consideration of therapy is multi factorial and multi disciplinary relying on subjective and objective clinical data. This data is not construed or intended to be the sole determinant of treatment eligibility. Head MRI 08/15/18 10:09 CONCLUSION: Negative brain MRI with and without intravenous contrast. There are no findings to indicate recent ischemia. <Nely Maddox N - 08/15/18 12:25> Caprini VTE Risk Assessment Caprini VTE Risk Assessment: No/Low Risk (score <= 1) <Nely Maddox N - 14:04> Caprini Risk Assessment Model: Point Value = 1 Point Value = 2 Point Value = 3 Point Value = 5 Age 41-60 Minor surgery BMI > 25 kg/m2 Swollen legs Varicose veins or History of unexplained or recurrent spontaneous Oral contraceptives or hormone replacement Sepsis (< 1 month) Serious lung disease, including pneumonia (< 1 month) Abnormal pulmonary function Acute myocardial infarction Congestive heart failure (< 1 month) History of inflammatory bowel disease Medical patient at bed rest Age 61-74 Arthroscopic surgery Major open surgery (> 45 min) Laparoscopic surgery (> 45 min) Malignancy Confined to bed (> 72 hours) Immobilizing plaster cast Central venous access Age >= 75 History of VTE Family history of VTE Factor V Leiden Prothrombin [id number] Lupus anticoagulant Anticardiolipin antibodies Elevated serum homocysteine Heparin-induced thrombocytopenia Other congenital or acquired thrombophilia Stroke (< 1 month) Elective arthroplasty Hip, pelvis, or leg fracture Acute spinal cord injury (< 1 month) <Selin Belle R 08/17/18 12:33> Point Value = 1 Point Value = 2 Point Value = 3 Point Value = 5 Age 41-60 Minor surgery BMI > 25 kg/m2 Swollen legs Varicose veins or History of unexplained or recurrent spontaneous Oral contraceptives or hormone replacement Sepsis (< 1 month) Serious lung disease, including pneumonia (< 1 month) Abnormal pulmonary function Acute myocardial infarction Congestive heart failure (< 1 month) History of inflammatory bowel disease Medical patient at bed rest Age 61-74 Arthroscopic surgery Major open surgery (> 45 min) Laparoscopic surgery (> 45 min) Malignancy Confined to bed (> 72 hours) Immobilizing plaster cast Central venous access Age >= 75 History of VTE Family history of VTE Factor V Leiden Prothrombin [id number] Lupus anticoagulant Anticardiolipin antibodies Elevated serum homocysteine Heparin-induced thrombocytopenia Other congenital or acquired thrombophilia Stroke (< 1 month) Elective arthroplasty Hip, pelvis, or leg fracture Acute spinal cord injury (< 1 month) <Nely Maddox N - 08/15/18 12:25> Prophylaxis Regimen: Total Risk Factor Score Risk Level Prophylaxis Regimen 0-1 Low Early ambulation 2 Moderate Order ONE of the following: *Sequential Compression Device (SCD) *Heparin 5000 units SQ BID 3-4 Higher Order ONE of the following medications: *Heparin 5000 units SQ TID *Enoxaparin/Lovenox 40 mg SQ daily (WT < 150 kg, CrCl > 30 mL/min) *Enoxaparin/Lovenox 30 mg SQ daily (WT < 150 kg, CrCl > 10-29 mL/min) *Enoxaparin/Lovenox 30 mg SQ BID (WT < 150 kg, CrCl > 30 mL/min) AND/OR *Sequential Compression Device (SCD) 5 or more Highest Order ONE of the following medications: *Heparin 5000 units SQ TID (Preferred with Epidurals) *Enoxaparin/Lovenox 40 mg SQ daily (WT < 150 kg, CrCl > 30 mL/min) *Enoxaparin/Lovenox 30 mg SQ daily (WT < 150 kg, CrCl > 10-29 mL/min) *Enoxaparin/Lovenox 30 mg SQ BID (WT < 150 kg, CrCl > 30 mL/min) AND *Sequential Compression Device (SCD) <Selin Belle 08/17/18 12:33> Total Risk Factor Score Risk Level Prophylaxis Regimen 0-1 Low Early ambulation 2 Moderate Order ONE of the following: *Sequential Compression Device (SCD) *Heparin 5000 units SQ BID 3-4 Higher Order ONE of the following medications: *Heparin 5000 units SQ TID *Enoxaparin/Lovenox 40 mg SQ daily (WT < 150 kg, CrCl > 30 mL/min) *Enoxaparin/Lovenox 30 mg SQ daily (WT < 150 kg, CrCl > 10-29 mL/min) *Enoxaparin/Lovenox 30 mg SQ BID (WT < 150 kg, CrCl > 30 mL/min) AND/OR *Sequential Compression Device (SCD) 5 or more Highest Order ONE of the following medications: *Heparin 5000 units SQ TID (Preferred with Epidurals) *Enoxaparin/Lovenox 40 mg SQ daily (WT < 150 kg, CrCl > 30 mL/min) *Enoxaparin/Lovenox 30 mg SQ daily (WT < 150 kg, CrCl > 10-29 mL/min) *Enoxaparin/Lovenox 30 mg SQ BID (WT < 150 kg, CrCl > 30 mL/min) AND *Sequential Compression Device (SCD) <Nely Maddox 08/15/18 12:25> Assessment and Plan - Assessment (1) Weakness on right side of face Code(s): R29.810 - Status: Acute (2) Weakness of right side of body Code(s): R53.1 - Status: Acute (3) Hip pain, chronic Code(s): M25.559 - Pain in unspecified hip; G89.29 - Other chronic pain Status : Acute <Selin Belle 08/17/18 12:33> (1) Weakness on right side of face Code(s): R29.810 - Facial weakness Status: Acute (2) Weakness of right side of body Code(s): R53.1 - Weakness Status: Acute (3) Hip pain, chronic Code(s): M25.559 - Pain in unspecified hip; G89.29 - Other chronic pain Status : Acute <Nely Maddox 08/15/18 16:06> - Assessment and Plan 52 y/o F presenting w/new onset right-sided facial droop and right-sided weakness. Plan to admit to inpatient for stroke rule out and further assessment. Spoke with the ER physician Dr. Quijano. Neurology was consulted and assessed the patient before we arrived. Symptoms appear to have started over the last 24 hours. Patient is no longer a candidate for TPA. Daughter has history of Hoffman's palsy with residual right-sided weakness. Head, neck, CT perfusion of the brain normal. Patient has no signs of infection. Neurologic exam evident for right-sided facial droop affecting primarily the facial nerve. Exam also displays evidence of right-sided weakness compared to the left and possible decreased sensation. Differential: Viral or post-viral versus lupus versus demyelinating diseasev v thyroid disease v vitamin deficiency v atypical migraine versus . 1. Right-sided facial weakness -Neurology consulted, appreciate recommendations and orders -Keep head of the bed flat for 12 hours or until cleared by physician -MRI and 2D echo ordered -PT/OT/ST ordered in addition to bedside swallow study before diet is given. N.p.o. for now until cleared -Bedrest, fall precautions -NIH stroke scale -Neurochecks ordered every 4 hours -Aspirin 325 mg p.o. daily -Continue to trend troponin and CK for a total of x3 every 6 hours -EKG ordered -Case management consulted -Lipid profile, A1c, thyroid panel, hypercoagulable and autoimmune workup pending -Anticoagulation not indicated 2. Right-sided weakness of the body -See plan above 3. Hip pain, chronic (right) -Secondary to history of hip dysplasia -Tylenol ordered as needed for pain, avoid muscle relaxers or any sedatives at this time //FEN Fluids: Normal saline at 120 MLS per hour Electrolytes: Supplementation not indicated at this time Nutrition: N.p.o. until cleared by bedside swallow/study DVT prophylaxis: Not indicated GI prophylaxis: Not indicated Full code <Nely Maddox N - 08/15/18 16:48> - Attending Attestation The patient was discussed with the resident team. Agree with admission to inpatient and also the assessment and plan as listed above <Selin Belle R - 08/17/18 12:33>
[2018-08-15] MEDS ORDERED: Dextrose 50% in Water 50 ML Vial IV.PUSH PRN (12:45)
[2018-08-15 13:56] LABS: Free T4 (Free Thyroxine) 0.83 ng/dL (0.76-1.46)
[2018-08-15] MEDS ORDERED: Acetaminophen 325 MG Tablet PO PRN (16:43)
[2018-08-15 18:54] LABS: Creatine Kinase 111 U/L (26-192)
--- NOTE | 2018-08-15 21:38 | ECG ---
Date Performed: 08/15/2018 Time Performed: 13:31:48 PTAGE: 52 years EKG: Sinus rhythm NORMAL ECG Compared to prior electrocardiogram, rate has increased . PREVIOUS TRACING : 10/05/2014 14.02 DOCTOR: Jerry Fried Interpretating Date/Time 08/15/2018 21:36:32
[2018-08-15] MEDS ORDERED: Dexamethasone Inj 20 MG/5 ML Vial IV.PUSH ONE (22:16)
--- NOTE | 2018-08-15 22:35 | P.PNADD ---
Addendum to Inpatient Note Reason for Addendum: Additional Documentation Additional information: Responded to page from nursing concerning upset family members, who felt that the patient was not adequately being taken care of and stated that if they did not get to speak to the doctor, they would leave w/patient AMA. When I saw the family, they expressed that they were worried that the patient was getting worse and was not getting medications. Stated that she only received one bag of IV fluids and that she did not get another bag for hours and were worried about her being dehydrated. They had told the nurse multiple times but did not feel that they were being heard. Also said that she was having a very painful headache/migraine and that she was not getting any pain medication despite numerous requests. I expressed apologies to the family for delay in care and that this sometimes occurs on busy nights in the hospital like health system, where information can get lost in transitions of care. I reiterated that patient will continue to be monitored regularly while receiving supportive care, that her hydration status was not affected based on her vitals, that she would absolutely receive optimal care in the future. They can also request to speak to me directly if they have anymore concerns or questions. I spoke w/ neurologist Dr. Morocho during our conversation about the patient and family's complaints and touched base with him about the plan. He requested I order Decadron 10 mg IV stat x1 and Protonix (IV 40 mg daily) for GI prophylaxis, and we discussed our suspicion's for possibly Hoffman's Palsy. This was ordered and also communicated to patient's family. Other questions from family members were answered, and family voiced agreement and understanding of plan. I afterwards spoke w/nursing about plan, who also voiced the same.
[2018-08-15] MEDS ORDERED: Pantoprazole Inj 40 MG Vial IV.PUSH SCH (23:00)
[2018-08-15] MEDS: Sod Chloride 0.9% Inj 1,000 ML IV.CONT SCH (23:53)
[2018-08-16 00:32] LABS: Creatine Kinase 99 U/L (26-192)
[2018-08-16 04:58] LABS: Baso % (Auto) 0.2 % (0.0-2.0); Eos % (Auto) 0.1 % (0.0-4.0); Hematocrit 41.1 % (35.0-46.0); Hemoglobin 14.2 gm/dL (11.6-15.3); Lymph # (Auto) 0.8 th/mm3 (1.0-4.8); Lymph % (Auto) 9.4 % (9.0-44.0); Mean Corpuscular HGB Conc 34.6 % (32.0-36.0); Mean Corpuscular Hemoglobin 31.1 pg (27.0-34.0); Mean Corpuscular Volume 89.9 fL (80.0-100.0); Mean Platelet Volume 8.1 fL (7.0-11.0); Mono # (Auto) 0.1 th/mm3 (0.0-0.9); Mono % (Auto) 1.1 % (0.0-8.0); Neut # (Auto) 7.6 th/mm3 (1.8-7.7); Neut % (Auto) 89.2 % (16.0-70.0); Platelet Count 223 th/mm3 (150-450); Red Blood Count 4.57 mil/mm3 (4.00-5.30); Red Cell Distribution Width 13.4 % (11.6-17.2); White Blood Count 8.6 th/mm3 (4.0-11.0)
[2018-08-16 05:44] LABS: Anion Gap 9 meq/L (5-15); Blood Urea Nitrogen 10 mg/dL (7-18); Calcium 8.4 mg/dL (8.5-10.1); Carbon Dioxide 23.7 meq/L (21.0-32.0); Chloride 105 meq/L (98-107); Glomerular Filtration Rate Greater Than 89 mL/min (>89); Glucose,Random 134 mg/dL (74-106); Potassium 3.9 meq/L (3.5-5.1); Sodium 138 meq/L (136-145)
[2018-08-16 05:45] LABS: Cholesterol 236 mg/dL (120-200); Triglycerides 139 mg/dL (42-150)
[2018-08-16 05:47] LABS: HDL Cholesterol 44.5 mg/dL (40.0-60.0); LDL Cholesterol,Calculated 164 mg/dL (0-99)
[2018-08-16] MEDS: Sod Chloride 0.9% Inj 1,000 ML IV.CONT SCH ×2 (06:48→16:09)
[2018-08-16 08:23] VITALS: RESP 20
[2018-08-16] MEDS: Aspirin 325 MG Tablet PO SCH (10:09)
--- NOTE | 2018-08-16 10:48 | ECHRPT ---
Indication: CVA/TIA CONCLUSIONS The left ventricular systolic function is hyperdynamic with an estimated ejection fraction in the ra nge of 65- 70%. Normal left ventricular size. Mild concentric left ventricular hypertrophy. No regional wall motion abnormalities are present. Aortic valve sclerosis is present. Trace aortic valve regurgitation. Trivial pulmonary valve regurgitation. BP: / HR: Rhythm: Sinus MEASUREMENTS (Male / Female) Normal Values Technical Quality:Fair 2D ECHO LV Diastolic Diameter PLAX 3.3 cm 4.2 - 5.9 / 3.9 - 5.3 cm LV Systolic Diameter PLAX 2.1 cm IVS Diastolic Thickness 1.1 cm 0.6 - 1.0 / 0.6 - 0.9 cm LVPW Diastolic Thickness 1.1 cm 0.6 - 1.0 / 0.6 - 0.9 cm LV Relative Wall Thickness 0.7 RV Internal Dim ED PLAX 2.5 cm LVOT Diameter 1.8 cm M-MODE Aortic Root Diameter MM 1.7 cm LA Systolic Diameter MM 3.9 cm LA Ao Ratio MM 2.3 AV Cusp Separation MM 1.5 cm DOPPLER AV Peak Velocity 152.0 cm/s AV Peak Gradient 9.2 mmHg AI Peak Velocity 295.0 cm/s AI Peak Gradient 34.8 mmHg AI Pressure Half Time 1178.0 ms LVOT Peak Velocity 88.4 cm/s LVOT Peak Gradient 3.1 mmHg AV Area Cont Eq pk 1.5 cm MV Area PHT 5.9 cm Mitral E Point Velocity 81.9 cm/s Mitral A Point Velocity 109.0 cm/s Mitral E to A Ratio 0.8 LV E' Lateral Velocity 8.9 cm/s Mitral E to LV E' Lateral Ratio 9.2 LV E' Septal Velocity 6.8 cm/s Mitral E to LV E' Septal Ratio 12.0 PV Peak Velocity 81.4 cm/s PV Peak Gradient 2.7 mmHg FINDINGS LEFT VENTRICLE The left ventricular systolic function is hyperdynamic with an estimated ejection fraction in the ra nge of 65- 70%. Normal left ventricular size. Mild concentric left ventricular hypertrophy. No regional wall motion abnormalities are present. Doppler parameters are consistent with impaired left ventricular relaxtion (grade 1 diastolic dysfun ction). RIGHT VENTRICLE Normal right ventricular size and systolic function. LEFT ATRIUM The left atrial size is normal. RIGHT ATRIUM The right atrial size is normal. ATRIAL SEPTUM Normal atrial septal thickness without atrial level shunting by limited color doppler interrogation. AORTA The aortic root and proximal ascending aorta are normal in size on limited imaging. MITRAL VALVE Structurally normal mitral valve. No mitral valve stenosis or regurgitation. AORTIC VALVE Trileaflet aortic valve. Aortic valve sclerosis is present. Trace aortic valve regurgitation. TRICUSPID VALVE Structurally normal tricuspid valve. No tricuspid valve stenosis or regurgitation. PULMONARY VALVE Trivial pulmonary valve regurgitation. VESSELS The inferior vena cava is normal in size. PERICARDIUM No pericardial effusion. Gideon Soriano MD (Electronically Signed) Final Date:16 August 2018 10:47
[2018-08-16] MEDS ORDERED: Gadobutrol PF 7.5 MMOL/7.5 ML Vial (for RAD) IV.SIG ONE (11:26)
--- NOTE | 2018-08-16 12:03 | MR ---
EXAM DATE: 08/16/2018 9:08 AM EDT AGE/SEX: 52 years / Female INDICATIONS: Right sided weakness. CLINICAL DATA: This is the patient's initial encounter. Patient reports that signs and symptoms have been present for 2 days and indicates a pain score of 0/10. MEDICAL/SURGICAL HISTORY: None. Hysterectomy. [place] [facility] [place]. . TECHNIQUE: Multiplanar, multisequence examination of the brain was performed without and with 6cc ml Gadavist (gadobutrol) contrast as a single exam dose. FINDINGS: Cerebrum: Ventricles are normal. No midline shift, mass lesion, hemorrhage or acute infarction. No extraaxial fluid collections are seen. The pituitary gland and suprasellar cistern are normal in con figuration. White Matter: No significant signal abnormalities are seen in the white matter. Posterior Fossa: The cerebellum and brainstem demonstrate no acute abnormality. The 4th ventricle is midline. The cerebellopontine angle is within normal limits. The cerebellar tonsils are normal in p osition. Diffusion Imaging: No areas of restricted diffusion are seen. Extracranial: The visualized sinuses are clear. Post contrast: No areas of abnormal contrast enhancement are identified. CONCLUSION: Negative brain MRI without intravenous contrast. No abnormality is identified to explain the clinical symptoms. Electronically signed by: Dajuan Aguilera MD 08/16/2018 12:01 PM EDT
[2018-08-16 12:12] LABS: Hemoglobin A1c 5.6 % (4.3-6.0)
--- NOTE | 2018-08-16 12:24 | MR ---
EXAM DATE: 08/16/2018 11:36 AM EDT AGE/SEX: 52 years / Female INDICATIONS: . Right facial droop. CLINICAL DATA: This is the patient's initial encounter. Patient reports that signs and symptoms have been present for 1 day and indicates a pain score of 0/10. MEDICAL/SURGICAL HISTORY: None. Hysterectomy. COMPARISON: [facility] – [place] HEAD W & W/O CONTRAST, 08/16/2018. . TECHNIQUE: MR cerebral venography is performed with 6 ml Gadavist (gadobutrol) contrast (single exam dose). Source images, 3D volume MIP, and sliding thin slab MIP reconstructions were reviewed. FINDINGS: The 3-D reconstructed images demonstrate signal dropout within the transverse sinuses bilaterally. An d a small filling defect at the level of the torcula. There is clearly flow around these areas. There is no evidence of edema within the brain parenchyma adjacent to these areas. The superior sagittal sinus is widely patent. The cortical veins are patent, the internal cerebral ve ins and straight sinus are widely patent. CONCLUSION: 1. There are filling defects seen within the transverse sinuses and at the level the torcula. Sinus anatomy can be quite variable however I cannot exclude a small amount of thrombus. There is a MRI lori ed 08/16/2018. I do not see evidence of significant edema within the brain parenchyma adjacent to thes e areas. There is clearly flow around the filling defects. Electronically signed by: Chilango Dang MD 08/16/2018 12:23 PM EDT
--- NOTE | 2018-08-16 12:34 | P.PN ---
Subjective Interval history: Pt seen and evaluated this morning. She is feeling better with improved strength in her leg and arm and decreased swelling of her face. She reports now feeling some numbness on her L lip and cheek. She denies any recent outdoor exposure, no camping, no hiking, no possible tick exposure. She reports having a rash on her leg back in May when she went on a cruise, but nothing since then. She denies nausea today, but states she had it yesterday when her headache was present. She described her headache as stating in the forehead and spreading all the way to the back. She was sensitive to light and sound. She also reports mild throat swelling yesterday, improved with steroids. Her daughter had an episode of Hoffman's palsy about four years ago, and still has residual symptoms. They are wondering if these conditions are related and if her mother could have gotten this from eating a salad. Physical Exam Vital signs: Vital Signs 08/15/18 16:00 08/15/18 20:00 08/15/18 20:30 Temperature 98.1 F 98.5 F Pulse Rate 73 75 75 Respiratory Rate 20 18 Blood Pressure 147/72 H 158/79 H Pulse Oximetry 97 97 08/16/18 00:00 08/16/18 00:30 08/16/18 03:02 Temperature 98.5 F Pulse Rate 80 79 Respiratory Rate 18 18 Blood Pressure 127/59 L Pulse Oximetry 98 08/16/18 04:00 08/16/18 04:30 08/16/18 08:00 Temperature 97.9 F 98.1 F Pulse Rate 88 81 92 H Respiratory Rate 18 20 Blood Pressure 126/67 113/61 Pulse Oximetry 97 96 08/16/18 12:00 Temperature 98.6 F Pulse Rate 87 Respiratory Rate 20 Blood Pressure 115/61 Pulse Oximetry 96 Intake & Output 08/15/18 08/16/18 08/16/18 18:59 06:59 18:59 Intake Total 1200 / 1200 Balance 1200 / 1200 Weight 65.317 kg 66.8 kg Intake: IV 1200 / 1200 NS Inj 1,000 ML @ 120 mls/hr IV 1000 / 1000 .CONT .Q8H20M [facility] Rx#:[id number] Ofirmev Inj 1,000 mg In 100 ml 200 / 200 @ 400 mls/hr IV.SIG Q6H [facility] Rx# :[id number] Other: # Voids 2 Date of Last Bowel Movement 08/15/18 Narrative: GENERAL: Well-nourished, well-developed patient. Moderate facial droop noted on the right, minimally impacting speech. No slurring as noted yesterday. SKIN: Warm and dry. No rash. EYES: No scleral icterus. No drainage from either eye. EOMI. HENT: Normocephalic. Atraumatic. Mucous membranes pink and moist. Uvula midline. Oropharynx clear w/o lesions or erythema. CARDIOVASCULAR: Regular rate and rhythm without obvious murmurs, gallops, or rubs. RESPIRATORY: No accessory muscle use. CTAB. GASTROINTESTINAL: Abdomen soft, non-tender, nondistended without rebound or guarding. No organomegaly. MUSCULOSKELETAL: minimally diminished motor strength on the right side UE and LE. 5/5 on the left side. Reports improving since yesterday. NEURO: Awake, alert, and oriented. Unable to raise R eyebrow, unable to smile w / R side of lip. R face droop present, no drooling appreciated. Minimally decreased sensation to touch on the right cheek. Sensation to light touch equal on bilateral arms and legs. Able to speak both [place] and Kisw[place]ili ( [place] language) without difficulties. No trouble with word finding. PSYCH: Able to respond to questions appropriately, cooperative, alert, speech is normal and clear. Affect is appropriate to situation. Results - Labs CBC & Chem 7: 08/16/18 04:36 08/16/18 04:36 Laboratory Results - last 24 hr 08/15/18 08/15/18 08/15/18 12:55 12:55 18:08 WBC RBC Hgb Hct MCV MCH MCHC RDW Plt Count MPV Neut % (Auto) Lymph % (Auto) [place] % (Auto) Eos % (Auto) Baso % (Auto) Neut # (Auto) Lymph # (Auto) [place] # (Auto) Eos # (Auto) Baso # (Auto) WBC Differential Differential Comment Sodium Potassium Chloride Carbon Dioxide Anion Gap BUN Creatinine Estimated GFR Random Glucose Calcium Total Creatine Kinase 111 CK-MB (CK-2) 1.0 Troponin I Less than 0.02 L C-Reactive Protein Less than 0.29 Total Protein (PEP) 8.0 Triglycerides Cholesterol LDL Cholesterol, Calc HDL Cholesterol Cholesterol/HDL Ratio Folate Greater than 20.0 H TSH 2.190 Free T4 0.83 Beta HCG, Quant Less than 1 08/16/18 08/16/18 08/16/18 00:01 04:36 04:36 WBC 8.6 RBC 4.57 Hgb 14.2 Hct 41.1 MCV 89.9 MCH 31.1 MCHC 34.6 RDW 13.4 Plt Count 223 MPV 8.1 Neut % (Auto) 89.2 H Lymph % (Auto) 9.4 [place] % (Auto) 1.1 Eos % (Auto) 0.1 Baso % (Auto) 0.2 Neut # (Auto) 7.6 Lymph # (Auto) 0.8 L [place] # (Auto) 0.1 Eos # (Auto) 0.0 Baso # (Auto) 0.0 WBC Differential . Differential Comment Auto diff final Sodium 138 Potassium 3.9 Chloride 105 Carbon Dioxide 23.7 Anion Gap 9 BUN 10 Creatinine 0.61 Estimated GFR Greater than 89 Random Glucose 134 H Calcium 8.4 L Total Creatine Kinase 99 CK-MB (CK-2) Troponin I Less than 0.02 L C-Reactive Protein Total Protein (PEP) Triglycerides 139 Cholesterol 236 H LDL Cholesterol, Calc 164 H HDL Cholesterol 44.5 Cholesterol/HDL Ratio 5.30 Folate TSH Free T4 Beta HCG, Quant - Imaging Impressions Head MRI 08/16/18 00:00 CONCLUSION: Negative brain MRI without intravenous contrast. No abnormality is identified to explain the clinical symptoms. Head/Brain Mag Res Venography 08/16/18 00:00 CONCLUSION: 1. There are filling defects seen within the transverse sinuses and at the level the torcula. Sinus anatomy can be quite variable however I cannot exclude a small amount of thrombus. There is a MRI dated 08/16/2018. I do not see evidence of significant edema within the brain parenchyma adjacent to these areas. There is clearly flow around the filling defects. Assessment and Plan - Assessment (1) Weakness on right side of face Code(s): R29.810 - Status: Acute (2) Weakness of right side of body Code(s): R53.1 - Status: Acute (3) Hip pain, chronic Code(s): M25.559 - ; G89.29 - Status: Acute - Plan 52 y/o F presenting w/new onset right-sided facial droop and right-sided weakness. Admitted for stroke rule out and further assessment. Head, neck, CT perfusion of the brain normal. Patient has no signs of infection. Neurologic exam evident for right-sided facial droop affecting primarily the facial nerve. Exam also displays evidence of right-sided weakness compared to the left and possible decreased sensation. Repeat MRI today WNL. At this point Stroke has been ruled out. TSH , ESR, electrolytes, troponin, CRP, and UA are WNL, mildly elevated cholesterol. UDS negative. Echocardiogram showing mild concentric left ventricular hypertrophy, otherwise normal. 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 Lyme disease testing has been added and pending. Autoimmune disease and hypercoagulable workup is pending. Differential diagnosis: Hoffman's palsy vs Viral or post-viral vs lupus vs demyelinating disease vs atypical migraine 1. Right-sided facial weakness - Neurology consulted, appreciate recommendations and orders - Received Decadron 10mg IV once yesterday, - PT/OT consulted - Speech therapy cleared for pureed diet only. With continue ST while inpatient. - Neurochecks ordered every 4 hours - Aspirin 81 mg p.o. daily per neurology - Case management consulted - Lyme disease, HbA1c, hypercoagulable and autoimmune workup pending 2. Right-sided weakness of the body: improving -See plan above 3. Hip pain, chronic (right) -Secondary to history of hip dysplasia -Tylenol ordered as needed for pain, avoid muscle relaxers or any sedatives at this time //FEN Fluids: Normal saline at 120 MLS per hour Electrolytes: Supplementation not indicated at this time Nutrition: N.p.o. until cleared by bedside swallow/study DVT prophylaxis: Not indicated GI prophylaxis: Not indicated Full code - Attending Attestation The exam, history, and the medical decision-making described in the above note were completed with the assistance of the resident physician. I reviewed and agree with the findings presented. I attest that I had a [id number] encounter with the patient on the same day, and personally performed and documented my assessment and findings in the medical record.
--- NOTE | 2018-08-16 12:56 | P.PNNEU ---
Subjective Subjective Comments: sr Active Medications: Active Medications Acetaminophen (Tylenol) 650 mg PO Q6HR PRN PRN Reason: PAIN 1-10 AND/OR FEVER >101F Aspirin (Aspirin) 325 mg PO DAILY [facility] Last Admin: 08/16/18 10:09 Dose: Not Given Dextrose (D50w Vial) 50 ml IV.PUSH UNSCH PRN PRN Reason: PER HYPOGLYCEMIA PROTOCOL Glucagon (Glucagon Inj) 1 mg OTHER UNSCH PRN PRN Reason: for Hypoglycemia Protocol Acetaminophen (Ofirmev Inj) 1,000 mg in 100 mls @ 400 mls/hr IV.SIG Q6H [facility] Stop: 08/16/18 16:14 Last Infusion: 08/16/18 04:49 Dose: Infused Sodium Chloride (Ns Inj) 1,000 mls @ 110 mls/hr IV.CONT .Q9H6M [facility] Last Admin: 08/16/18 06:48 Dose: Not Given Pantoprazole Sodium (Protonix Inj) 40 mg IV.PUSH Q24H [facility] Last Admin: 08/15/18 23:49 Dose: 40 mg Sodium Chloride (Ns Flush) 2 ml IV.FLUSH PRN PRN PRN Reason: FLUSH AFTER USING IV ACCESS Sodium Chloride (Ns Flush) 2 ml IV.FLUSH BID [facility] Last Admin: 08/16/18 10:09 Dose: Not Given Allergies/Adverse Reactions: Allergies Allergy/AdvReac Type Severity Reaction Status Date / Time No Known Allergies Allergy Verified 08/15/18 09:19 Physical Exam Vital signs: Vital Signs 08/15/18 16:00 08/15/18 20:00 08/15/18 20:30 Temperature 98.1 F 98.5 F Pulse Rate 73 75 75 Respiratory Rate 20 18 Blood Pressure 147/72 H 158/79 H Pulse Oximetry 97 97 08/16/18 00:00 08/16/18 00:30 08/16/18 03:02 Temperature 98.5 F Pulse Rate 80 79 Respiratory Rate 18 18 Blood Pressure 127/59 L Pulse Oximetry 98 08/16/18 04:00 08/16/18 04:30 08/16/18 08:00 Temperature 97.9 F 98.1 F Pulse Rate 88 81 92 H Respiratory Rate 18 20 Blood Pressure 126/67 113/61 Pulse Oximetry 97 96 08/16/18 12:00 Temperature 98.6 F Pulse Rate 87 Respiratory Rate 20 Blood Pressure 115/61 Pulse Oximetry 96 Intake & Output 08/15/18 08/16/18 08/16/18 18:59 06:59 18:59 Intake Total 1200 / 1200 Balance 1200 / 1200 Weight 65.317 kg 66.8 kg Intake: IV 1200 / 1200 NS Inj 1,000 ML @ 120 mls/hr IV 1000 / 1000 .CONT .Q8H20M [facility] Rx#:[id number] Ofirmev Inj 1,000 mg In 100 ml 200 / 200 @ 400 mls/hr IV.SIG Q6H [facility] Rx# :[id number] Other: # Voids 2 Date of Last Bowel Movement 08/15/18 Narrative: r peripheral 7th nerve palsy involves blink and r frontalis nl pin bue ble and bilat face left facial strength nl 5/5 bue and ble nl speech no mass r parotid Objective Laboratory Results - last 24 hr 08/15/18 08/15/18 08/15/18 12:55 12:55 18:08 WBC RBC Hgb Hct MCV MCH MCHC RDW Plt Count MPV Neut % (Auto) Lymph % (Auto) [place] % (Auto) Eos % (Auto) Baso % (Auto) Neut # (Auto) Lymph # (Auto) [place] # (Auto) Eos # (Auto) Baso # (Auto) WBC Differential Differential Comment Sodium Potassium Chloride Carbon Dioxide Anion Gap BUN Creatinine Estimated GFR Random Glucose Calcium Total Creatine Kinase 111 CK-MB (CK-2) 1.0 Troponin I Less than 0.02 L C-Reactive Protein Less than 0.29 Total Protein (PEP) 8.0 Triglycerides Cholesterol LDL Cholesterol, Calc HDL Cholesterol Cholesterol/HDL Ratio Folate Greater than 20.0 H TSH 2.190 Free T4 0.83 Beta HCG, Quant Less than 1 08/16/18 08/16/18 08/16/18 00:01 04:36 04:36 WBC 8.6 RBC 4.57 Hgb 14.2 Hct 41.1 MCV 89.9 MCH 31.1 MCHC 34.6 RDW 13.4 Plt Count 223 MPV 8.1 Neut % (Auto) 89.2 H Lymph % (Auto) 9.4 [place] % (Auto) 1.1 Eos % (Auto) 0.1 Baso % (Auto) 0.2 Neut # (Auto) 7.6 Lymph # (Auto) 0.8 L [place] # (Auto) 0.1 Eos # (Auto) 0.0 Baso # (Auto) 0.0 WBC Differential . Differential Comment Auto diff final Sodium 138 Potassium 3.9 Chloride 105 Carbon Dioxide 23.7 Anion Gap 9 BUN 10 Creatinine 0.61 Estimated GFR Greater than 89 Random Glucose 134 H Calcium 8.4 L Total Creatine Kinase 99 CK-MB (CK-2) Troponin I Less than 0.02 L C-Reactive Protein Total Protein (PEP) Triglycerides 139 Cholesterol 236 H LDL Cholesterol, Calc 164 H HDL Cholesterol 44.5 Cholesterol/HDL Ratio 5.30 Folate TSH Free T4 Beta HCG, Quant Review/Management - Review/Management Plan: imp mrix2 nl r mastoid not well pneumatized i dw rads no brainstem abn mrv ok echo labs all ok fu lyme medrol dose mary why she felt numb and weak on r side from this unclear but no cva statin and asa 81 fu hyper labs
[2018-08-16] MEDS ORDERED: METHYLPREDNISOLONE 16 MG PO ONE (15:00)
[2018-08-16 16:39] VITALS: BP 167/83; PULSE 96; TEMP 98; O2SAT 97
[2018-08-17 16:06] LABS: Anti-Nuclear Antibody Screen Neg (Neg)
[2018-08-18 23:53] LABS: Homocysteine (Cardiovascular) 5.3 umol/L (<10.4)
[2018-08-19 13:52] LABS: Dil Russell Viper Venom Conf ( ND (NEGATIVE); Dil Russell Viper Venom Time M ND (CORRECTED); Lupus Anticoagulant PTT Screen 33 seconds (< OR = 40)
[2018-08-19 19:52] LABS: Lyme Ab 18KD IgG WB NON-REACTIVE; Lyme Ab 23KD IgG WB NON-REACTIVE; Lyme Ab 23KD IgM WB NON-REACTIVE; Lyme Ab 28KD IgG WB NON-REACTIVE; Lyme Ab 30KD IgG WB NON-REACTIVE; Lyme Ab 39KD IgG WB NON-REACTIVE; Lyme Ab 39KD IgM WB NON-REACTIVE; Lyme Ab 41KD IgG WB NON-REACTIVE; Lyme Ab 41KD IgM WB NON-REACTIVE; Lyme Ab 45KD IgG WB NON-REACTIVE; Lyme Ab 58KD IgG WB NON-REACTIVE; Lyme Ab 66KD IgG WB NON-REACTIVE; Lyme Ab 93KD IgG WB NON-REACTIVE
[2018-08-20 03:49] LABS: Activated Protein C Resistance 5.2 ratio (> OR = 2.1)
[2018-08-20 18:30] LABS: Factor V Leiden Mutation Negative (Negative); Protein C Antigen 134 % (70-150)
== END 2018-08-16 18:45 | disposition home or self-care (01) ==
LOC: NEPC 09:11 → NEDA 11:59 → N05 14:30
PROVIDERS: ADMIT Family Medicine; ATTEND Family Medicine